=== PATIENT | female | born 1940 | race Caucasian/White ===

== ENCOUNTER → 2016-05-12 | Outpatient (CLI) | payer OTHER, MEDICARE ==
--- NOTE | 2016-05-12 15:36 | DI ---
MRI LUMBAR SPINE W/O CN,05/12/2016 12:40 PM: Clinical History: Lumbar radiculopathy. Previous Exam: None at this facility. Findings: Multiplanar MR images are obtained through the lumbar spine without contrast. Bony alignment is anatomic except for grade 1 anterolisthesis of L5 on S1. No fractures seen. There i s some very mild marrow edema involving the L1 and L2 vertebral bodies. The spinal cord descends normally with normal course, caliber and a normal conus at the L1 level. There is partial lumbarization of the first sacral vertebral body. There is no evidence of pars defect. The paraspinal musculature is unremarkable. Individual intervertebral disc spaces: L1/2: There is disc desiccation and a broad-based disc bulge with some facet and ligamentum flavum hy pertrophy contributing to mild bilateral neural foraminal narrowing. L2/3: No significant stenosis. L3/4: There is disc desiccation, endplate osteophyte formation and a broad-based disc bulge combining with facet and ligamentum flavum hypertrophy contributing to mild central canal stenosis with modera te bilateral neural foraminal narrowing. L4/5: There is disc desiccation, endplate osteophyte formation, annular fissuring and a broad-based d isc bulge contributing to moderate to severe central canal stenosis with severe right and mild left n eural foraminal narrowing. L5/S1: There is grade 1 anterolisthesis of L5 on S1 with a broad-based disc bulge, disc desiccation a nd facet and ligamentum flavum hypertrophy contributing to mild right and mild to moderate left neura l foraminal narrowing. Impression: L3/4: There is disc desiccation, endplate osteophyte formation and a broad-based disc bulge combining with facet and ligamentum flavum hypertrophy contributing to mild central canal stenosis with modera te bilateral neural foraminal narrowing. L4/5: There is disc desiccation, endplate osteophyte formation, annular fissuring and a broad-based d isc bulge contributing to moderate to severe central canal stenosis with severe right and mild left n eural foraminal narrowing. L5/S1: There is grade 1 anterolisthesis of L5 on S1 with a broad-based disc bulge, disc desiccation a nd facet and ligamentum flavum hypertrophy contributing to mild right and mild to moderate left neura l foraminal narrowing.
== END ==
LOC: MRI 12:38
PROVIDERS: ATTEND Family Medicine
DX: M54.16 Radiculopathy, lumbar region (principal); M51.16 Intervertebral disc disorders with radiculopathy, lumbar region; M51.17 Intervertebral disc disorders with radiculopathy, lumbosacral region
CPT/HCPCS: 72148